=== PATIENT | female | born 1965 | race Caucasian/White ===

== ENCOUNTER 2017-12-19 00:49 | Emergency (ER) | payer BC, OTHER ==
[~2017-12-19] VITALS: Ht 157.5 cm; Wt 81.7 kg
[2017-12-19] MEDS ORDERED: HYDROCORTISONE30 G9 RECTAL (01:44)
[2017-12-19] MEDS ORDERED: NORCO 5-325 TA1 EACH PO (01:44)
[2017-12-19 02:30] VITALS: BP 168/88
== END 2017-12-19 02:18 | disposition home or self-care (01) ==
LOC: ER 00:49
DX: K64.5 Perianal venous thrombosis (principal); Z88.0 Allergy status to penicillin

== ENCOUNTER 2020-02-03 12:06 | Emergency (ER) | payer OTHER ==
[~2020-02-03] VITALS: Ht 157.5 cm; Wt 79.4 kg
[~2020-02-03 12:06] MED LIST: HYDROCORTISONE30 G9 RECTAL; NORCO 5-325 TA1 EACH PO
[2020-02-03] MEDS ORDERED: FLONASE 0.05%50 MCG NASAL (13:19)
[2020-02-03] MEDS ORDERED: SUDAFED 12-HOU120 MG PO (13:19)
[2020-02-03 13:34] VITALS: BP 155/86
== END 2020-02-03 13:33 | disposition home or self-care (01) ==
LOC: ER 12:06
DX: U07.1 COVID-19 (principal); R51 Headache; Z79.899 Other long term (current) drug therapy; Z88.0 Allergy status to penicillin

== ENCOUNTER 2020-02-04 05:32 | Emergency (ER) | payer OTHER ==
[~2020-02-04] VITALS: Ht 157.5 cm; Wt 79.4 kg
[~2020-02-04 05:32] MED LIST changes: +FLONASE 0.05%50 MCG NASAL; +SUDAFED 12-HOU120 MG PO
[2020-02-04 06:10] VITALS: BP 122/74
== END 2020-02-04 06:10 | disposition home or self-care (01) ==
LOC: ER 05:32
DX: U07.1 COVID-19 (principal); Z88.0 Allergy status to penicillin; Z79.899 Other long term (current) drug therapy